=== PATIENT | male | born 2000 | race Caucasian/White ===

== ENCOUNTER 2019-05-06 18:23 | Emergency (ER) | payer SELFPAY ==
[2019-05-06 18:45] VITALS: BP 140/88; PULSE 97; RESP 16; TEMP 37.2; O2SAT 99
--- NOTE | 2019-05-06 20:16 | PC.NURSE ---
He is going to [place] in AM,has had thrush before,c/of sides of his tongue being sore.Able to eat and swallow.
[2019-05-06 20:38] VITALS: BP 144/94; PULSE 87; RESP 16
--- NOTE | 2019-05-06 20:44 | ED_ITS ---
HPI - Dental/Oral <Eloise Downing PA-C - Last Filed: 05/06/19 21:08> General Chief complaint: Dental/Oral Stated complaint: states oral thrush, wants something Time Seen by Provider: 05/06/19 18:32 Source: patient Mode of arrival: ambulatory Limitations: no limitations History of Present Illness HPI Narrative: This healthy 19-year-old male comes in due to concern for oral thrush. He states that he used to get this as a child when he used inhalers for asthma. Two weeks ago he got strep throat and was treated with antibiotics, he also had sores in his throat. He states that towards the end of the antibiotics, he started to get fell breath, white coating on his tongue and palate, worse in the morning. He states he feels some discomfort but not sore throat like when he had strep. He denies any fever. Denies any earache, cough or other new complaints. He is leaving for [place] shortly and was hoping to get a prescription for this. Related Data Previous Rx's Medication Instructions Recorded epinephrine 0.3 mg IM PRN PRN #1 syr 04/23/17 nystatin 5 ml BUCCAL QID 7 Days #140 ml 05/06/19 Allergies Allergy/AdvReac Type Severity Reaction Status Date / Time egg [EGG] Allergy Unknown ANAPHYLAXIS Unverified 03/11/18 12:31 peanut [PEANUT] Allergy Unknown Unverified 03/11/18 12:31 tree nut [TREE NUT] Allergy Unknown ANAPHYLAXIS Unverified 03/11/18 12:31 Review of Systems <Eloise Downing PA-C - Last Filed: 05/06/19 21:08> Review of Systems ROS Unobtainable: All systems reviewed & are unremarkable except as noted in HPI and below PFSH <Eloise Downing PA-C - Last Filed: 05/06/19 21:08> Medical History (Updated 05/06/19 @ 20:43 by Eloise Downing PA-C) Asthma (Resolved) Surgical History (Updated 05/06/19 @ 20:43 by Eloise Downing PA-C) No history of previous surgery (Chronic) Social History Smoking Status: Never smoker Social History Smoking Status: Never smoker Exam <Eloise Downing PA-C - Last Filed: 05/06/19 21:08> Narrative Exam Narrative: GENERAL APPEARANCE: Patient sitting comfortably, in no distress. HEENT: PERRL, EOMI, normal TMs, there is a thin layer of white coating on the tongue that scrapes off. None on the palate, no oral lesions or ulcerations noted NECK/THYROID: Neck supple LUNGS: Clear to auscultation bilaterally. HEART: Regular rate and rhythm without murmur, normal S1, S2, no S3 or S4. Initial Vital Signs Initial Vital Signs: Vital Signs Temperature 98.9 F 05/06/19 18:45 Pulse Rate 97 H 05/06/19 18:45 Respiratory Rate 16 05/06/19 18:45 Blood Pressure 140/88 05/06/19 18:45 Pulse Oximetry 99 05/06/19 18:45 <DO Carlos Thomas Last Filed: 05/07/19 00:33> Initial Vital Signs Initial Vital Signs: Vital Signs Temperature 98.9 F 05/06/19 18:45 Pulse Rate 97 H 05/06/19 18:45 Respiratory Rate 16 05/06/19 18:45 Blood Pressure 140/88 05/06/19 18:45 Pulse Oximetry 99 05/06/19 18:45 Course <Eloise Downing PA-C - Last Filed: 05/06/19 21:08> Vital Signs - 8 hr 05/06/19 18:45 05/06/19 20:38 Temperature 98.9 F Pulse Rate 97 H 87 Respiratory Rate 16 16 Blood Pressure 140/88 Blood Pressure [Right Arm] 144/94 H Pulse Oximetry 99 <DO Carlos Thomas Last Filed: 05/07/19 00:33> Vital Signs - 8 hr 05/06/19 18:45 05/06/19 20:38 Temperature 98.9 F Pulse Rate 97 H 87 Respiratory Rate 16 16 Blood Pressure 140/88 Blood Pressure [Right Arm] 144/94 H Pulse Oximetry 99 Discharge Plan Departure Patient Disposition: Home Clinical Impression: Oral thrush Discharge Date/Time: 05/06/19 20:42 Interventions: ED Discharge Assessment Last Done: 05/06/19 20:42 Instructions: DI for Thrush Activity Restrictions/Additional Instructions: Please start the nystatin suspension 5ml swish on your tongue and swallow 4 times daily for a week. See your PCP if not getting better as expected. Prescriptions: New nystatin 100,000 unit/mL suspension 5 ml BUCCAL QID 7 Days Qty: 140 RF: 0 No Action epinephrine 0.3 MG/0.3 ML auto-injector 0.3 mg IM PRN PRNQty: 1 RF: 0 Referrals: [facility] [Other] <Marco Gr DO - Last Filed: 05/07/19 00:33> Cosign ED Attending Souravature Attestation: I was available for consultation during this patient's emergency department encounter
== END 2019-05-06 20:42 | disposition home or self-care (01) ==
PROVIDERS: Emergency Provider Internal Medicine
DX: B37.0 Candidal stomatitis (principal)
CPT/HCPCS: 99282; 99283

== ENCOUNTER 2021-01-21 08:07 | Emergency (ER) | payer SELFPAY ==
[2021-01-21 08:10] VITALS: BP 147/102; PULSE 105; RESP 18; TEMP 36.8; O2SAT 97; BMI 23.0
--- NOTE | 2021-01-21 08:41 | ED.WOUNDLAC ---
HPI - Wound/Laceration General Chief Complaint: Extremity Injury, Upper Stated Complaint: Cut Lt Pinky Finger Time Seen by Provider: 01/21/21 08:23 Source: patient and other (Co-worker) Mode of arrival: Ambulatory History of Present Illness HPI narrative: Patient complains of laceration to the left 5th digit at the volar/palmar surface of the MCP joint. Sensation intact. Bleeding controlled. Tetanus up-to-date. 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 Was cutting [employer] cord and utility knife cut his finger. Patient is right handed. Related Data Previous Rx's Medication Instructions Recorded epinephrine 0.3 mg IM PRN PRN #1 syr 04/23/17 cephalexin 500 mg PO TID #15 cap 01/21/21 Allergies Allergy/AdvReac Type Severity Reaction Status Date / Time egg [EGG] Allergy Unknown ANAPHYLAXIS Verified 01/21/21 08:44 peanut [PEANUT] Allergy Unknown Verified 01/21/21 08:44 tree nut [TREE NUT] Allergy Unknown ANAPHYLAXIS Verified 01/21/21 08:44 Review of Systems Review of Systems Narrative: GENERAL: Denies chills, fatigue, malaise, fever, sweats. MUSCULOSKELETAL: denies muscle or bony pain SKIN: Denies rash, skin lesions NEUROLOGIC: Denies weakness, numbness ROS Unobtainable: All systems reviewed & are unremarkable except as noted in HPI and below Patient History Medical History Asthma Surgical History No history of previous surgery Social History Smoking Status: Never smoker Smoking Status: Never smoker alcohol intake frequency: a few times a month Substance Use Type: does not use Exam Narrative Exam Narrative: GENERAL: in no distress, not toxic not dyspneic HEAD: Normocephalic. EXTREMITIES: No gross deformities. Examination left hand. There is a 1 cm superficial laceration at the base palmar surface of the 5th MCP joint. Bleeding is controlled. Light touch intact to finger. Able to fully flex and extend actively at the MCP PIP and the IP joints. No bone or tendon injury seen. Based visualized. No foreign body. Bloodless field when exam NEURO: AOx4. SKIN: Warm and dry PSYCH: Not anxious, is cooperative Initial Vital Signs Initial Vital Signs: Vital Signs Temperature 98.3 F 01/21/21 08:10 Pulse Rate 105 H 01/21/21 08:10 Respiratory Rate 18 01/21/21 08:10 Blood Pressure 147/102 H 01/21/21 08:10 Pulse Oximetry 97 01/21/21 08:10 Procedures Laceration Repair Laceration 1: Site: other (Little finger) Side (If applicable): left Size (cm): 1 Description: linear Depth: simple, single layer Local Anesthetic: lidocaine 2% Amount of anesthesia used (mL): 1 Pre-repair: wound explored, irrigated extensively and deep structures intact Skin layer closed with: nylon Size (cm): 4-0 Number of sutures: 3 Technique: simple, interrupted Course Orders Ordered: Discontinued Medications Bacitracin (Bacitracin Oint 0.9 Gm Pckt) 1 applic TOP NOW ONE Stop: 01/21/21 09:15 Last Admin: 01/21/21 09:31 Dose: 1 applic Documented by: RUSTY Cephalexin HCl (Cephalexin 250 Mg Capsule) 500 mg PO NOW ONE Stop: 01/21/21 08:40 Last Admin: 01/21/21 08:53 Dose: 500 mg Documented by: JOSE DANIEL Lidocaine HCl (Lidocaine 1% 20 Ml) 10 ml INJ NOW ONE Stop: 01/21/21 08:40 Last Admin: 01/21/21 08:54 Dose: Not Given Documented by: JOSE DANIEL Lidocaine HCl (Lidocaine 2% Inj Mdv) 20 ml INJ INTRA-OP ONE Stop: 01/21/21 08:52 Last Admin: 01/21/21 08:54 Dose: 5 ml Documented by: JOSE DANIEL Reevaluation(s) Reevaluation #1: No bleeding after suturing. Neurovascularly intact. Time: 09:13 Vital Signs Vital signs: Vital Signs - 8 hr 01/21/21 08:10 Temperature 98.3 F Pulse Rate 105 H Respiratory Rate 18 Blood Pressure 147/102 H Pulse Oximetry 97 MDM - Wound/Laceration Differential Diagnosis Differential diagnosis: Likely laceration MDM Narrative Medical decision making narrative: Appropriate for discharge home. No x-rays indicated. Low suspicion for foreign body. Low suspicion for bony injury. Fingers neurovascularly intact. Discharge Plan Departure Patient Disposition: Home Clinical Impression: Finger laceration Qualifiers: Encounter type: initial encounter Finger: little finger Damage to nail status: without damage Foreign body presence: without foreign body Laterality: left Qualified Code(s): S61.217A - Laceration without foreign body of left little finger without damage to nail, initial encounter Instructions: DI for Laceration Repair Activity Restrictions/Additional Instructions: Change dressing once a day with warm soap and water and then apply topical antibiotic. May shower but no submersion of hand under water. Three stitches to be removed 8-10 days. Return if worse if any questions or concerns. No strong gripping with left hand. Prescription has been sent to [facility] here in [facility]. Prescriptions: New cephalexin 500 mg capsule 500 mg PO TID Qty: 15 RF: 0 No Action epinephrine 0.3 MG/0.3 ML auto-injector 0.3 mg IM PRN PRNQty: 1 RF: 0
[2021-01-21] MEDS: cephALEXin 250 MG CAPSULE 500 MG PO (08:53)
[2021-01-21] MEDS: LIDOCAINE 2% INJ MDV 20 ML INJ (08:54)
--- NOTE | 2021-01-21 08:54 | PC.NURSE ---
thoroughly cleaning wound and suturing it closed.
[2021-01-21 09:26] VITALS: BP 138/79; PULSE 90; RESP 16; TEMP 36.2; O2SAT 100
[2021-01-21] MEDS: BACITRACIN OINT 0.9 GM PCKT 1 APPLIC TOP (09:31)
== END 2021-01-21 09:26 | disposition home or self-care (01) ==
PROVIDERS: Emergency Provider Emergency Medicine
DX: S61.217A Laceration without foreign body of left little finger without damage to nail, initial encounter (principal); W26.0XXA Contact with knife, initial encounter
CPT/HCPCS: 12001; 99282; 99283